=== PATIENT | male | born 1960 | race Caucasian/White ===

== ENCOUNTER → 2024-07-19 | Outpatient (CLI) | payer SELFPAY ==
[~2024-07-19] MED LIST: ALBUTEROL SULF 2.5 MG/0.5ML(0.5%) NEB SOLN ONE
--- NOTE | 2024-07-22 14:27 | DVHNC2 ---
Procedure - Pulmonary function test interpretation July 19, 2024 1. Moderate obstructive ventilatory defect. 2. Total lung capacity is within normal limits, 91% of predicted, 7.11 L. 3. Moderate reduction in diffusion capacity, not corrected for patient's hemoglobin. 46% of predicted. BHASKAR MURCIA MD Jul 22, 2024 14:27
== END | disposition home or self-care (01) ==
LOC: RT 14:44
PROVIDERS: ATTEND Internal Medicine Pulmonary Disease
DX: J43.9 Emphysema, unspecified (principal); J98.4 Other disorders of lung; Z87.891 Personal history of nicotine dependence; R06.00 Dyspnea, unspecified
CPT/HCPCS: 94010; 94060; 94727; 94729